=== PATIENT | male | born 1940 | race Caucasian/White ===

== ENCOUNTER 2019-11-24 20:37 | Emergency (ER) | payer MEDICARE, OTHER ==
[~2019-11-24] VITALS: Ht 180.3 cm; Wt 80.7 kg
[2019-11-24 20:42] VITALS: BP 150/77
[2019-11-24] MEDS ORDERED: PEPCID PO STA (20:47)
[2019-11-24] MEDS ORDERED: BENADRYL PO STA (20:47)
[2019-11-24] MEDS ORDERED: PREDNISONE PO STA (20:47)
[2019-11-24] MEDS ORDERED: PEPCID ONE (20:50)
[2019-11-24] MEDS ORDERED: BENADRYL PO ONE (20:50)
[2019-11-24] MEDS ORDERED: PREDNISONE ONE (20:50)
--- NOTE | 2019-11-24 20:54 | ER.PDOC ---
General Chief Complaint: Requesting Medical Care Stated Complaint: POSS ALLG REACTION Time seen by MD: 20:47 Source: patient Exam Limitations: no limitations History of Present Illness Initial Comments Patient c/o diffuse body rash with urticaria onset last night. He just finished a course of Lamisil which is the only new medication on his list. Severity: mild Associated Symptoms: skin rash, itching Identified Cause: possibly Exposure: antibiotic (antifungal = lamisil) Allergies: Coded Allergies: Sulfa (Sulfonamide Antibiotics) (Unverified Allergy, Unknown, 09/01/14) Past Medical History Medical History: diabetes (borderline), other (tinea cruris) Surgical History: stent Constitutional: no symptoms reported EENTM: no symptoms reported Respiratory: no symptoms reported Cardiovascular: no symptoms reported Gastrointestinal: no symptoms reported Musculoskeletal: no symptoms reported Skin: see HPI Physical Exam General Appearance: alert, no distress (no airway compromise on exam) HEENT: ENT nml inspection, pharynx, voice nml Skin: skin rash, erthema, urticaria Extremities: non-tender, nml ROM, no edema Neck: nml inspection Respiratory: no resp. distress, breath sounds nml (no wheezing) CVS: reg. rate & rhythm Abdomen: non-tender NEURO/PSYCH: oriented x 3 Departure Time of Disposition: 20:51 Disposition: 01 HOME, SELF-CARE Impression: Primary Impression: Allergic reaction caused by a drug Additional Impression: Urticaria Condition: Stable Patient Instructions: Drug Allergy Referrals: NAY PENG (PCP) PRIMARY CARE PROVIDER Additional Instructions: Do not refill/take Lamisil. Take the medications prescribed tonight as directed until all gone. Return to ER if you experience any difficulty breathing or swallowing or for any emergent concern. Call Dr. Adams tomorrow for immediate follow up appointment. Duration or Time Spent with Pa: 15 min Problem Qualifiers Primary Impression: Allergic reaction caused by a drug Encounter type: initial encounter Qualified Codes: T78.40XA - Allergy, unspecified, initial encounter NBA LUCIANO DO Nov 24, 2019 20:54
[2019-11-24 21:00] VITALS: BP 132/88
== END 2019-11-24 21:09 | disposition home or self-care (01) ==
LOC: ER 20:37
DX: L50.9 Urticaria, unspecified (principal); T49.0X5A Adverse effect of local antifungal, anti-infective and anti-inflammatory drugs, initial encounter; Y92.89 Other specified places as the place of occurrence of the external cause
CPT/HCPCS: 99284; J7512; Q0163

== ENCOUNTER 2020-07-01 19:52 | Emergency (ER) | payer MEDICARE, OTHER ==
[~2020-07-01] VITALS: Ht 180.3 cm; Wt 80.7 kg
[2020-07-01 20:00] VITALS: BP 129/78
--- NOTE | 2020-07-01 20:10 | ER.PDOC ---
General Chief Complaint: Requesting Medical Care Stated Complaint: HIGH BP TRAVEL OUT OF US: No Time seen by MD: 20:10 Source: patient Exam Limitations: no limitations History of Present Illness Initial Comments Patient presents for evaluation of elevated blood pressure. His SBP was 185 this evening so he took his imdur and his SBP is 120 now. He denies chest pain, SOB, Abd pain, Nausea, vomiting, focal numbness or weakness, no slurred speech or confusion. He reports very mild headache that started after he took the imdur. No head trauma. He does not want the headache treated. He has no other complaints at this time. He reports that he eats a lot of cheese and sodium which may be affecting his BP. Allergies: Coded Allergies: Sulfa (Sulfonamide Antibiotics) (Unverified Allergy, Unknown, 09/01/14) Past Medical History Medical History: diabetes, other Surgical History: stent Social History Drug Use: none Reviewed Nursing Reviewed: Vital Signs, Abn. Noted, Nursing Assessment Review of Systems Constitutional: no symptoms reported EENTM: no symptoms reported Respiratory: no symptoms reported Cardiovascular: no symptoms reported Gastrointestinal: no symptoms reported Genitourinary: no symptoms reported Musculoskeletal: no symptoms reported Psychiatric/Neurological: see HPI Physical Exam General Appearance: No Apparent Distress, WD/WN EENT: eyes nml inspection, nml ENT inspection Neck: Supple Respiratory: lungs clear, normal breath sounds, no respiratory distress CVS: reg rate & rhythm, pulses nml, nml capillary refill Gastrointestinal: Normal Bowel Sounds, No Pulsatile Mass, Non Tender, Soft Extremities: Normal Range of Motion, Normal Inspection Neurologic/Psychiatric: No Motor/Sensory Deficits, Alert, Normal Mood/Affect Skin: Normal Color, Warm/Dry Results/Orders Results/Orders patient will call his PCP in the [facility] for oputpatient follow up and likely medication adjustment. If he develops any new or worsening sx such as CP, or focal neuro deficits he understands the need to return [facility] Departure Time of Disposition: 20:23 Disposition: 01 HOME, SELF-CARE Impression: Primary Impression: Hypertension Condition: Stable Referrals: NAY PENG (PCP) PRIMARY CARE PROVIDER Duration or Time Spent with Pa: JEANNIE VASQUEZ MD Jul 01, 2020 20:10
[2020-07-01] MEDS ORDERED: ISOS30TA73 PO (20:15)
[2020-07-01] MEDS ORDERED: HYDR12.58 PO (20:15)
[2020-07-01] MEDS ORDERED: CLOP75TA52 PO (20:15)
[2020-07-01] MEDS ORDERED: LOSA50TA14 PO (20:15)
[2020-07-01 20:40] VITALS: BP 107/67
== END 2020-07-01 20:40 | disposition home or self-care (01) ==
LOC: ER 19:52
DX: I10 Essential (primary) hypertension (principal)
CPT/HCPCS: 99281

== ENCOUNTER 2020-07-27 03:38 | Emergency (ER) | payer MEDICARE, OTHER ==
[~2020-07-27] VITALS: Ht 180.3 cm; Wt 80.7 kg
[~2020-07-27 03:38] MED LIST: CLOP75TA52 PO; HYDR12.58 PO; ISOS30TA73 PO; LOSA50TA14 PO
[2020-07-27 03:40] VITALS: BP 164/84
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
[2020-07-27] MEDS ORDERED: EPINEPHrine ONE (04:15)
[2020-07-27] MEDS ORDERED: PEPCID IV ONE (04:16)
[2020-07-27] MEDS ORDERED: SOLU-MEDROL IV STA (04:19)
[2020-07-27] MEDS ORDERED: EPINEPHrine SQ STA (04:19)
[2020-07-27] MEDS ORDERED: PEPCID IV STA (04:19)
[2020-07-27] MEDS ORDERED: SOLU-MEDROL ONE (04:25)
[2020-07-27 04:37] VITALS: BP 164/84
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
--- NOTE | 2020-07-27 05:32 | NUR ---
REASSESSMENT PT REPORTING THAT THE SENSATION IN HIS THROAT IS STILL PRESENT. PT IN NAD WITH RR EVEN AND UNLABORED. EDP DR. RECINOS MADE AWARE.
[2020-07-27 05:35] VITALS: BP 133/67
--- NOTE | 2020-07-27 06:09 | DIREP ---
PROCEDURE:CT SOFT TISSUE NECK W/O COMPARISON:None. INDICATIONS:Throat discomfort TECHNIQUE:CT images were created without intravenous contrast material. Sagittal and coronal reconstructions are performed. FINDINGS: NASOPHARYNX:Heterogeneous soft tissue fullness in the left Fossae of [place]er. ORAL CAVITY:Normal. No visible mass. OROPHARYNX:Normal. Faucial and lingual tonsils are symmetric. HYPOPHARYNX:Normal. No mass or other visible lesion. LARYNX:Normal. The vocal cords are symmetric and without mass. SINUSES:Normal. Limited views show no significant fluid or mucosal thickening. NECK GLANDS:Normal. The parotid, submandibular, and thyroid glands are unremarkable. LYMPH NODES:Normal. No pathological-appearing or enlarged lymph nodes. SKULL BASE:Normal. Foramina are symmetric without bony erosion. VASCULATURE:Normal. Limited views are unremarkable. BONES:Normal. No significant osseous lesions. OTHER:Normal. No additional imaging findings. CONCLUSION:Heterogeneous soft tissue fullness in the left fossa of Rosenmuller suspicious for malignancy. Direct visualization recommended. Dictated by: Trice Srivastava MD on 07/27/2020 at 06:03 AM
[2020-07-27 06:20] VITALS: BP 128/63
--- NOTE | 2020-07-27 06:35 | NUR ---
[facility] ACCEPTANCE DR ALEXANDER ACCEPTED ER TO [facility]. PT REQUESTED TO GO POV AND APPROVED BY DR RECINOS.
== END 2020-07-27 06:50 | disposition home or self-care (01) ==
LOC: ER 03:38
DX: R07.0 Pain in throat (principal); E78.00 Pure hypercholesterolemia, unspecified; I10 Essential (primary) hypertension; Z79.52 Long term (current) use of systemic steroids; Z79.899 Other long term (current) drug therapy; Z88.2 Allergy status to sulfonamides
CPT/HCPCS: 70490; 96372; 96374; 96375; 99284; J0171; J2930; J3490